=== PATIENT | female | born 1985 | race African-American/Black ===

== ENCOUNTER 2016-10-14 15:41 | Emergency (ER) | payer OTHER ==
[2016-10-14 16:04] VITALS: RESP 18
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
--- NOTE | 2016-10-14 17:38 | XR ---
EXAMINATION TYPE: XR chest 2V DATE OF EXAM: 10/14/2016 5:33 PM COMPARISON: 12/04/2011 HISTORY: Back pain TECHNIQUE: Frontal and lateral views of the chest are obtained. FINDINGS: Heart and mediastinum are normal. Lungs are clear. Costophrenic angles are clear. There ar e no hilar masses. Bony thorax is intact. Exam is limited by patient size. There are chest leads. IMPRESSION: No active cardiopulmonary disease. No change.
--- NOTE | 2016-10-14 17:45 | XR ---
EXAMINATION TYPE: XR cervical spine comp DATE OF EXAM: 10/14/2016 5:33 PM COMPARISON: NONE HISTORY: Neck pain TECHNIQUE: 5 views FINDINGS: The cervical vertebra have normal spacing and alignment. Posterior elements are intact. Bambi antoaxial facet joint is normal. There are no cervical ribs. IMPRESSION: Normal cervical spine.
[2016-10-14] MEDS ORDERED: KETOROLAC 60 MG/2 ML VIAL IM STA (17:46)
--- NOTE | 2016-10-14 17:46 | XR ---
EXAMINATION TYPE: XR lumbar spine 2 or 3V DATE OF EXAM: 10/14/2016 5:33 PM COMPARISON: NONE HISTORY: Back pain TECHNIQUE: 3 views FINDINGS: The lumbar vertebra have normal spacing and alignment. Posterior elements appear intact. Sa croiliac joints appear normal. There is some narrowing and mild spurring at T12-L1 disc space. IMPRESSION: Negative lumbar spine exam. There is mild disc space narrowing noted at T12-L1.
[2016-10-14 18:02] VITALS: BP 121/68; PULSE 79; TEMP 98.1
== END 2016-10-14 18:00 | disposition home or self-care (01) ==
LOC: EC 15:41
DX: S16.1XXA Strain of muscle, fascia and tendon at neck level, initial encounter (principal); M54.5 Low back pain; R51 Headache; V49.49XA Driver injured in collision with other motor vehicles in traffic accident, initial encounter; F17.200 Nicotine dependence, unspecified, uncomplicated
CPT/HCPCS: 93005; 71020; 72050; 72100; 99284; 96372; J1885

== ENCOUNTER 2018-07-01 21:17 | Emergency (ER) | payer OTHER ==
[2018-07-01 21:39] VITALS: RESP 16
--- NOTE | 2018-07-01 21:51 | ED ---
General Adult HPI - General Chief complaint: Recheck/Abnormal Lab/Rx Stated complaint: Female Source: patient Mode of arrival: ambulatory Limitations: no limitations - History of Present Illness Initial comments: Dictation was produced using [employer] dictation software. please excuse any grammatical, word or spelling errors. Chief Complaint: 32-year-old [place] female presents with positive urine tests at home despite bilateral tubal ligation. History of Present Illness: 32-year-old female sexually active. She presents with a positive urine test. She states that she missed her period which was also performed days ago. She's had a bilateral tubal ligation approximately 7 years ago. She checked a urine test which was positive at home. Patient has no other complaints at this time. The ROS documented in this emergency department record has been reviewed and confirmed by me. Those systems with pertinent positive or negative responses have been documented in the HPI. All other systems are other negative and/or noncontributory. - Related Data Home Medications Medication Instructions Recorded Confirmed Multivitamin with Iron 1 tab PO DAILY 07/01/18 07/01/18 [Multivitamins with Iron] Allergies Allergy/AdvReac Type Severity Reaction Status Date / Time No Known Allergies Allergy Verified 07/01/18 21:51 Review of Systems ROS Statement: Those systems with pertinent positive or pertinent negative responses have been documented in the HPI. ROS Other: All systems not noted in ROS Statement are negative. Past Medical History Past Medical History: No Reported History History of Any Multi-Drug Resistant Organisms: None Reported Past Surgical History: Cholecystectomy, Tubal Ligation Past Psychological History: No Psychological Hx Reported Smoking Status: Current every day smoker Past Alcohol Use History: Occasional Past Drug Use History: None Reported General Exam - General Exam Comments Initial Comments: PHYSICAL EXAM: General Impression: Alert and oriented x3, not in acute distress HEENT: Normocephalic atraumatic, extra-ocular movements intact, pupils equal and reactive to light bilaterally, mucous membranes moist. Cardiovascular: Heart regular rate and rhythm, S1&S2 audible, no murmurs, rubs or gallops Chest: Lungs clear to auscultation bilaterally, no rhonchi, no wheeze, no rales Abdomen: Bowel sounds present, abdomen soft, non-tender, non-distended, no organomegaly Musculoskeletal: Pulses present and equal in all extremities, no peripheral edema Motor: Power 5/5 bilaterally, no focal deficits noted Neurological: CN II-XII grossly intact, no focal motor or sensory deficits noted Skin: Intact with no visualized rashes Psych: Normal affect and mood Limitations: no limitations Course Vital Signs 07/01/18 21:34 Temperature 98.7 F Pulse Rate 88 Respiratory 16 Rate Blood Pressure 138/72 O2 Sat by Pulse 99 Oximetry Medical Decision Making - Medical Decision Making ED course: 32-year-old female presents with positive urine tests at home status post bilateral tubal ligation. She has no other complaints at this time. Vital signs are within normal limits. Urine test is negative. Patient has no other complaints. No further workup indicated at this time. Patient told to recheck a urine about 7-10 days to confirm. Patient advised to follow-up with primary care physician upon discharge. Told to return if the development of any pelvic pain or vaginal discharge. Patient understandable agreeable to disposition. All questions dressed. - Lab Data Lab Results 07/01/18 Range/Units 21:36 Urine HCG, Qual Not Detected (Not Detectd) Disposition Clinical Impression: Positive urine test Disposition: HOME SELF-CARE Condition: Good Instructions: (ED) Is patient prescribed a controlled substance at d/c from ED?: No Referrals: Maria Eugenia Mann MD [Primary Care Provider] - 1-2 days Time of Disposition: 22:29
[2018-07-01 22:50] VITALS: BP 131/91; PULSE 75; TEMP 98.6
== END 2018-07-01 22:49 | disposition home or self-care (01) ==
LOC: EC 21:17
DX: Z32.01 Encounter for pregnancy test, result positive (principal); Z98.51 Tubal ligation status; F17.200 Nicotine dependence, unspecified, uncomplicated
CPT/HCPCS: 81025; 99282